=== PATIENT | female | born 1975 | race Caucasian/White ===

== ENCOUNTER 2017-09-10 00:05 | Emergency (ER) | payer BC ==
[~2017-09-10] VITALS: Ht 175.3 cm; Wt 76.0 kg
[2017-09-10 00:06] VITALS: BP 160/80; PULSE 75; RESP 16; TEMP 97.6; O2SAT 98
[2017-09-10 00:41] VITALS: O2SAT 100
[2017-09-10 00:44] LABS: AUTOMATED NEUTROPHIL # 5.5 TH/MM3 (1.8-7.7); BASOPHIL % 0.3 % (0.0-2.0); EOSINOPHIL # 0.2 TH/MM3 (0-0.4); EOSINOPHIL % 1.7 % (0.0-4.0); HEMATOCRIT 43.4 % (35.0-46.0); HEMO FLAGS DIFF FINAL; LYMPH % 35.7 % (9.0-44.0); LYMPHOCYTE # 3.5 TH/MM3 (1.0-4.8); MEAN CELL VOLUME 92.2 FL (80.0-100.0); MEAN CORPUSCULAR HEMOGLOBIN 30.7 PG (27.0-34.0); MEAN CORPUSCULAR HGB CONC 33.3 % (32.0-36.0); MONO % 6.6 % (0.0-8.0); NEUT % 55.7 % (16.0-70.0); PLATELET COUNT 227 TH/MM3 (150-450); RED BLOOD COUNT 4.71 MIL/MM3 (4.00-5.30); RED CELL DISTRIBUTION WIDTH 12.8 % (11.6-17.2); WHITE BLOOD COUNT 9.8 TH/MM3 (4.0-11.0)
[2017-09-10] MEDS ORDERED: KETOROLAC TROMETHAMINE 30 MG/ML (IVP) VIAL IV PUSH ONE (00:45)
[2017-09-10] MEDS ORDERED: SODIUM CHLOR 0.9% 1000 ML INJ 1,000 ML IV ONE (00:45)
[2017-09-10] MEDS ORDERED: ONDANSETRON HCL 4 MG/2 ML VIAL IV ONE (00:45)
[2017-09-10 00:46] LABS: BLOOD, URINE LARGE (NEG); GLUCOSE,URINE NEG (NEG); KETONE, URINE 10 mg/dL (NEG); NITRITE,URINE NEG (NEG); PH, URINE 5.5 (5.0-8.5)
[2017-09-10 00:47] LABS: URINE COLOR DARK-RED (YELLW/STRAW)
--- NOTE | 2017-09-10 00:47 | PD ---
HPI Chief Complaint: Flank/Kidney Pain Time Seen by Provider: 00:21 Travel History International Travel<30 days: No Contact w/Intl Traveler<30days: No Traveled to known affect area: No History of Present Illness HPI The patient is a 41 year old female who presents to the [facility] emergency department with a history of approximately one hour ago noticing blood in her urine. The patient reports that she then developed left-sided flank pain that radiated around to the abdomen. She reports that the pain has been constant since then. She reports that 2 hours ago while she was driving she did take Advil. She reports that she had a mild back discomfort at that time that she thought was related to driving. She reports that she was in the process of driving down from [place]. She is in the area to visit family. She denies having any dysuria, urinary frequency, or urinary urgency. She denies having any nausea or vomiting. On review of systems, she denies having any recent fevers, cough, congestion, neck pain, chest pain, shortness of breath, diarrhea, or neurologic symptoms. 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 Social History Alcohol Use: No Tobacco Use: No Substance Use: No Allergies-Medications (Allergen,Severity, Reaction): Coded Allergies: amoxicillin (Verified Allergy, Severe, Cramping, 09/10/17) clavulanic acid (Verified Allergy, Severe, Cramping, 09/10/17) doxycycline (Verified Allergy, Severe, Fever, 09/10/17) Narrative Medication Low-dose aspirin, cholesterol lowering agent Review of Systems Except as stated in HPI: all other systems reviewed are Neg General / Constitutional: No: Fever Eyes: No: Visual changes HENT: No: Headaches Cardiovascular: No: Chest Pain or Discomfort Respiratory: No: Shortness of Breath Gastrointestinal: Positive: Abdominal Pain, No: Nausea, Vomiting, Diarrhea, Changes in Bowel Habits, Indigestion, Loss of Appetite Genitourinary: Positive: Hematuria, Flank Pain, No: Urgency, Frequency, Dysuria Musculoskeletal: No: Pain Skin: No Rash Neurologic: No: Weakness Psychiatric: No: Depression Endocrine: No: Polydipsia Hematologic/Lymphatic: No: Easy Bruising Physical Exam Narrative General: The patient is a well-developed well-nourished female in no acute distress. Head and Neck exam: Head is normocephalic atraumatic. Eyes: EOMI, pupils are equal round and reactive to light. Nose: Midline septum with pink mucous membranes Mouth: Dentition unremarkable. Moist mucus membranes. Posterior oropharynx is not erythematous. No tonsillar hypertrophy. Uvula midline. Airway patent. Neck: No palpable lymphadenopathy. No nuchal rigidity. No thyromegaly. Cardiovascular: Regular rate and rhythm without murmurs, gallops, or rubs. Lungs: Clear to auscultation bilaterally. No wheezes, rhonchi, or rales. Abdomen: Soft, without tenderness to palpation in all 4 quadrants of the abdomen. No guarding, rebound, or rigidity. Normal bowel sounds are audible. No tenderness on palpation of McBurney's point. Extremities: No clubbing, cyanosis, or edema. 2+ pulses in all 4 extremities. Back: No spinous process tenderness to palpation. Left-sided CVA tenderness on palpation. Neurologic Exam: Grossly nonfocal. Skin Exam: No rash noted. Intact skin that is warm and dry. Data Data Last Documented VS Vital Signs Date Time Temp Pulse Resp B/P (MAP) Pulse Ox O2 Delivery O2 Flow Rate FiO2 09/10/17 02:50 129/97 (108) 100 09/10/17 02:45 16 09/10/17 00:06 97.6 75 Room Air Orders Orders Complete Blood Count With Diff (09/10/17:22) Comprehensive Metabolic Panel (09/10/17:22) C-Reactive Protein (Crp) (09/10/17:22) Lipase (09/10/17:) Urinalysis - C+S If Indicated (09/10/17:) Ct Abd/Pel W/O Iv Contrast (11/20/17 00:22) Iv Access Insert/Monitor (09/10/17 00:22) Ecg Monitoring (09/10/17 00:22) Oximetry (09/10/17 00:22) Ed Urine Pregnancytest Poc (09/10/17 00:22) Sodium Chlor 0.9% 1000 Ml Inj (Ns 1000 M (09/10/17 00:45) Ondansetron Inj (Zofran Inj) (09/10/17 00:45) Ketorolac Inj (Toradol Inj) (09/10/17 00:45) Urine Culture (09/10/17 00:25) Sodium Chlorid 0.9% 500 Ml Inj (Ns 500 M (09/10/17 01:15) Morphine Inj (Morphine Inj) (09/10/17 02:30) Ondansetron Inj (Zofran Inj) (09/10/17 02:30) Ed Discharge Order (09/10/17 02:59) Labs Laboratory Tests Test 09/10/17 00:25 White Blood Count 9.8 TH/MM3 Red Blood Count 4.71 MIL/MM3 Hemoglobin 14.5 GM/DL Hematocrit 43.4 % Mean Corpuscular Volume 92.2 FL Mean Corpuscular Hemoglobin 30.7 PG Mean Corpuscular Hemoglobin Concent 33.3 % Red Cell Distribution Width 12.8 % Platelet Count 227 TH/MM3 Mean Platelet Volume 9.5 FL Neutrophils (%) (Auto) 55.7 % Lymphocytes (%) (Auto) 35.7 % Monocytes (%) (Auto) 6.6 % Eosinophils (%) (Auto) 1.7 % Basophils (%) (Auto) 0.3 % Neutrophils # (Auto) 5.5 TH/MM3 Lymphocytes # (Auto) 3.5 TH/MM3 Monocytes # (Auto) 0.6 TH/MM3 Eosinophils # (Auto) 0.2 TH/MM3 Basophils # (Auto) 0.0 TH/MM3 CBC Comment DIFF FINAL Differential Comment Urine Color DARK-RED Urine Turbidity CLOUDY Urine pH 5.5 Urine Specific Hurt 1.033 Urine Protein 100 mg/dL Urine Glucose (UA) NEG mg/dL Urine Ketones 10 mg/dL Urine Occult Blood LARGE Urine Nitrite NEG Urine Bilirubin NEG Urine Urobilinogen LESS THAN 2.0 MG/DL Urine Leukocyte Esterase SMALL Urine RBC INNUM /hpf Urine WBC 6-8 /hpf Urine Squamous Epithelial Cells 0-5 /hpf Urine Calcium Oxalate Crystals OCC /hpf Urine Bacteria FEW /hpf Microscopic Urinalysis Comment CULTURE INDICATED Blood Urea Nitrogen 17 MG/DL Creatinine 1.01 MG/DL Random Glucose 83 MG/DL Total Protein 7.6 GM/DL Albumin 4.2 GM/DL Calcium Level 9.4 MG/DL Alkaline Phosphatase 58 U/L Aspartate Amino Transf (AST/SGOT) 24 U/L Alanine Aminotransferase (ALT/SGPT) 26 U/L Total Bilirubin 0.3 MG/DL Sodium Level 139 MEQ/L Potassium Level 4.6 MEQ/L Chloride Level 104 MEQ/L Carbon Dioxide Level 30.6 MEQ/L Anion Gap 4 MEQ/L Estimat Glomerular Filtration Rate 61 ML/MIN C-Reactive Protein LESS THAN 0.29 MG/DL Lipase 390 U/L [facility] Medical Decision Making Medical Screen Exam Complete: Yes Emergency Medical Condition: Yes Medical Record Reviewed: Yes Interpretation(s) Last Impressions Abdomen/Pelvis CT 09/10/17 0022 Signed Impressions: Service Date/Time: Sunday, September 10, 2017 00:36 - CONCLUSION: 1. 3 mm distal left ureteral calculus causing minimal obstructive uropathy. I don't clearly see the stone on the initial riveting machine operator automatic radiograph. 2. Also a 2 mm nonobstructing renal stone of the left mid zone. 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 No obstruction on the right. 3. 16mm benign-appearing right ovarian cyst. 4. Mild scoliosis. German Spangler MD Differential Diagnosis Pyelonephritis, versus kidney stone, versus musculoskeletal strain Narrative Course During the course of the patients emergency department visit, the patients history, examination, and differential diagnosis were reviewed with the patient. The patient was placed on a cardiac exercise specialist with oximetry and frequent blood pressure monitoring. The patient had IV access obtained and blood work sent for analysis. The patient was initially provided Toradol 15 mg IV, normal saline 1 L IV fluid bolus, Zofran 4 mg IV The patients laboratory studies were reviewed and remarkable for a CBC that is within normal limits, CMP is remarkable for a creatinine of 1.01, C-reactive protein is less than 0.29, lipase 390, urinalysis shows 10 ketones, large occult blood, small leukocyte esterase, RBCs innumerable, 6-8 WBCs, calcium oxalate crystals are noted. Culture is indicated. Radiology studies were reviewed and remarkable for a CT scan of the abdomen and pelvis that shows 3 mm distal left ureteral calculus causing minimal obstructive uropathy. The patient reported feeling improved after the initial dose of Toradol, however her pain recurred. The patient was given morphine for pain, another dose of Zofran for nausea. The patient reported having a ride home available. The patient on reexamination continued to feel improved. The patient will be discharged home with a prescription for Lortab and Motrin. The patient will call in the morning to schedule an appointment for follow-up with her urologist upon returning back home. The patient is resting comfortably and feels better, is alert and in no distress. The patients results and examination findings were discussed with the patient. The repeat examination is unremarkable and benign. The history, exam, diagnostic testing, and current condition do not suggest any significant pathology to warrant further testing, continued ED treatment, admission, or surgical evaluation at this point. The vital signs have been stable. The patient does not have uncontrollable pain, intractable vomiting, or other significant symptoms. The patient's condition is stable and appropriate for discharge. The patient will pursue further outpatient evaluation with a primary care physician or other designated or consulting physician as indicated in the discharge instructions. The patient expressed understanding and was agreeable with this plan. Diagnosis Primary Impression: Left ureteral calculus Referrals: Urologist 1 week Patient Instructions: General Instructions, Kidney Stones (ED) Additional Instructions: The patient is given a copy of her CT scan results to share with her urologist when she returns back home. She is instructed to make an appointment with her neurologist for follow-up sometime in the next week. Med/Other Pt SpecificInfo: Prescription(s) given Scripts Ibuprofen (Ibuprofen) 400 Mg Tab 400 MG PO Q8H Y for PAIN GREATER THAN 5, #9 TAB 0 Refills Prov: Alessandra Mendez MD 09/10/17 Hydrocodone/Acetaminophen (Hydrocodone-Acetamin 5-325 mg) 5 Mg-325 Mg Tablet 1 TAB PO Q4-6H Y for PAIN GREATER THAN 5, #20 Prov: Alessandra Mendez MD 09/10/17 Disposition: 01 DISCHARGE HOME Condition: Stable Alessandra Mendez MD Sep 10, 2017 00:47
[2017-09-10 00:51] LABS: RBC, URINE INNUM /hpf (0-3)
[2017-09-10 00:52] LABS: BACTERIA, URINE FEW /hpf; CALCIUM OXALATE CRYSTALS,URINE OCC /hpf; COMMENT (UR) CULTURE INDICATED; CULTURE IF INDICATED CULTURE INDICATED; SQUAMOUS EPITHELIAL CELL URINE 0-5 /hpf (0-5)
--- NOTE | 2017-09-10 00:57 | RADRPT ---
EXAM DATE/TIME: 09/10/2017 00:36 [facility] COMPARISON: No previous studies available for comparison. INDICATIONS : Left flank pain. ORAL CONTRAST: No oral contrast ingested. RADIATION DOSE: 5.55 CTDIvol (mGy) MEDICAL HISTORY : None SURGICAL HISTORY : None. ENCOUNTER: Initial ACUITY: 1 day PAIN SCALE: 4/10 LOCATION: Left flank TECHNIQUE: Volumetric scanning of the abdomen and pelvis was performed. Using automated exposure control and ad justment of the mA and/or kV according to patient size, radiation dose was kept as low as reasonably achievable to obtain optimal diagnostic quality images. DICOM format image data is available electro nically for review and comparison. FINDINGS: LOWER LUNGS: The visualized lower lungs are clear. LIVER: Homogeneous density without lesion. There is no dilation of the biliary tree. No calcified gallston es. SPLEEN: Normal size without lesion. PANCREAS: Within normal limits. KIDNEYS: There is a 3 mm stone of the distal left ureter approximately 2 cm above the ureterovesical junction. There is minimal left hydronephrosis/hydroureter. A 2 mm nonobstructing stone is seen of the left mi d zone. I believe there is mild medullary calcinosis of both kidneys. No evidence of ureteral calculu s or obstruction on the right. ADRENAL GLANDS: Within normal limits. VASCULAR: There is no aortic aneurysm. BOWEL/MESENTERY: The stomach, small bowel, and colon demonstrate no acute abnormality. There is no free intraperitone al air or fluid. ABDOMINAL WALL: Within normal limits. RETROPERITONEUM: There is no lymphadenopathy. BLADDER: No wall thickening or mass. REPRODUCTIVE: 16mm right ovarian cyst. No free fluid. INGUINAL: There is no lymphadenopathy or hernia. MUSCULOSKELETAL: No acute bony abnormality demonstrated. There is mild S-shaped thoracolumbar curvature. CONCLUSION: 1. 3 mm distal left ureteral calculus causing minimal obstructive uropathy. I don't clearly see the s tone on the initial scout leaser radiograph. 2. Also a 2 mm nonobstructing renal stone of the left mid zone. I believe there is bilateral medullar y calcinosis. No obstruction on the right. 3. 16mm benign-appearing right ovarian cyst. 4. Mild scoliosis. German Spangler MD on September 10, 2017 at 0:51 Board Certified Radiologist. This report was verified electronically.
[2017-09-10 00:59] LABS: ALT (GPT) 26 U/L (10-53); ANION GAP 4 MEQ/L (5-15); AST (GOT) 24 U/L (15-37); BICARBONATE 30.6 MEQ/L (21.0-32.0); BLOOD UREA NITROGEN 17 MG/DL (7-18); CHLORIDE 104 MEQ/L (98-107); GLOMERULAR FILTRATION RATE 61 ML/MIN (>89); SODIUM (NA) 139 MEQ/L (136-145)
[2017-09-10 01:00] LABS: ALKALINE PHOSPHATASE 58 U/L (45-117); POTASSIUM 4.6 MEQ/L (3.5-5.1); TOTAL BILIRUBIN ADULT 0.3 MG/DL (0.2-1.0)
[2017-09-10] MEDS ORDERED: SODIUM CHLORID 0.9% 500 ML INJ 500 ML IV ONE (01:15)
[2017-09-10] MEDS ORDERED: MORPHINE SULFATE 4 MG/ML INJ IV PUSH ONE (02:30)
[2017-09-10] MEDS ORDERED: ONDANSETRON HCL 4 MG/2 ML VIAL IV PUSH ONE (02:30)
[2017-09-10 02:45] VITALS: RESP 16
[2017-09-10 02:50] VITALS: BP 129/97
[2017-09-10] MEDS ORDERED: HYDR-3516 PO (03:03)
[2017-09-10] MEDS ORDERED: IBUP1TAB5 PO (03:03)
== END 2017-09-10 03:20 | disposition home or self-care (01) ==
LOC: NEPE 00:05
DX: N20.1 Calculus of ureter (principal); N20.0 Calculus of kidney; N83.201 Unspecified ovarian cyst, right side; M41.9 Scoliosis, unspecified; R31.9 Hematuria, unspecified; Z86.73 Personal history of transient ischemic attack (TIA), and cerebral infarction without residual deficits; Z88.8 Allergy status to other drugs, medicaments and biological substances; Z88.0 Allergy status to penicillin
CPT/HCPCS: 74176; 80053; 81001; 83690; 84703; 85025; 86140; 87086; 96361; 96374; 96375; 99285; J1885; J2270; J2405; J7030; J7040